=== PATIENT | male | born 1985 | race Caucasian/White ===

== ENCOUNTER → 2016-09-18 | Outpatient (CLI) | payer BC ==
--- NOTE | 2016-09-18 09:45 | MR ---
EXAMINATION TYPE: MR shoulder RT wo con DATE OF EXAM: 09/18/2016 8:56 AM COMPARISON: Right shoulder x-ray September 05, 2016. HISTORY: Rt Shoulder Pain per order. Pain since hockey injury 4 years ago per patient. TECHNIQUE: Multiplanar, multisequence imaging of the right shoulder is performed without contrast. FINDINGS: Rotator Cuff: There is focal tear involving the anterior fibers of the supraspinatus tendon seen best parasagittal image 21 measuring 10 mm in anterior posterior dimension by 7 mm in transverse dimensio n on paracoronal image 12. There is oblique full-thickness tear at this level seen best on parasagitt al image 20 from the outer bursal surface anteriorly to the posterior articular surface. Infraspinatus tendon is intact and felt within normal limits. Subscapularis tendon is intact. Rotator cuff muscle bulk is preserved. Acromioclavicular Joint: There is acromioclavicular joint separation with inferior margin of distal c lavicle 9 mm superiorly distracted from the inferior margin of the acromion on paracoronal image 15. Some overlap is present. Finding presumed chronic as no suspicious edema or soft tissue swelling is n oted. Findings correlate with x-ray. Distal acromion morphology is unremarkable. Glenohumeral Joint: There is small to moderate-sized glenohumeral joint effusion. No significant spur ring is seen. Labrum: On axial image 15 there is a blunted appearance of the expected level of the anterior superio r labrum suspected absent. Thickening of the adjacent middle glenohumeral ligament is noted. Findings are consistent with underlying Gilmer complex. Biceps Tendon: The long head of biceps is in normal location within bicipital groove. Bone marrow signal: Subchondral cystic change superior lateral humeral head posteriorly is present. Other: No additional significant abnormality is appreciated. IMPRESSION: 1. Acromioclavicular joint separation presumed chronic related to remote hockey injury. 2. Oblique full-thickness tear involving the supraspinatus tendon as detailed above. 3. Underlying [place] complex noted.
== END | disposition home or self-care (01) ==
LOC: RADMRIMAIN 08:10
PROVIDERS: ATTEND Orthopaedic Surgery
DX: M75.121 Complete rotator cuff tear or rupture of right shoulder, not specified as traumatic (principal)

== ENCOUNTER → 2018-06-25 | Outpatient (CLI) | payer BC ==
--- NOTE | 2018-06-26 07:28 | US ---
EXAMINATION TYPE: US kidneys/renal and bladder DATE OF EXAM: 06/25/2018 COMPARISON: NONE CLINICAL HISTORY: R31.9 Hematuria. microscopic hematuria, right sided pain EXAM MEASUREMENTS: Right Kidney: 10.0 x 4.7 x 5.5 cm Left Kidney: 9.7 x 4.0 x 4.8 cm Right Kidney: No hydronephrosis or masses seen Left Kidney: No hydronephrosis or masses seen Bladder: wnl Bilateral Jets seen: yes IMPRESSION: 1. Normal renal ultrasound
== END | disposition home or self-care (01) ==
LOC: RADUSWWP 16:03
PROVIDERS: ATTEND Family Medicine
DX: R31.9 Hematuria, unspecified (principal)
CPT/HCPCS: 76770

== ENCOUNTER → 2018-07-08 | Outpatient (CLI) | payer BC ==
--- NOTE | 2018-07-09 11:57 | CT ---
EXAMINATION TYPE: CT abdomen wo/w con DATE OF EXAM: 07/08/2018 COMPARISON: Renal ultrasound June 25, 2018. HISTORY: Right upper quadrant pain x 4 weeks. Acute cholecystitis per order. CT DLP: 2093 mGycm, Automated Exposure Control for Dose Reduction was Utilized. CONTRAST: CT scan of the abdomen is performed with oral and without and with IV Contrast, patient injected with 100 mL of Isovue M300. FINDINGS: LUNG BASES: There is suspected small degree of right-sided gynecomastia on axial image 1 partially im aged, correlate clinically. LIVER/GB: Gallbladder is normal in size. No CT dense intraluminal gallstones or surrounding inflammat ory change is present. PANCREAS: No significant abnormality is seen. SPLEEN: No significant abnormality is seen. ADRENALS: No significant abnormality is seen. KIDNEYS: Noncontrast images show no renal calculi bilaterally. Postcontrast images show symmetric cor tical medullary uptake and excretion without evidence of concerning solid or cystic renal mass or hyd ronephrosis seen bilaterally. BOWEL: The oral contrast only reaches level of terminal ileum making evaluation of: Suboptimal. There is no suspicious small or large bowel dilatation. Mild to moderate wall thickening in the right hand transverse colon is presumed product of poor distention, a colitis cannot be entirely excluded, orquidea elate clinically. Appendix is felt within normal limits extending inferiorly from base of cecum in th e right midabdomen lateral aspect. LYMPH NODES: No greater than 1cm abdominal lymph nodes are appreciated. OSSEOUS STRUCTURES: Transitional type L5 vertebra is felt present though only partially imaged. OTHER: No significant additional abnormality is seen. IMPRESSION: No CT evidence for acute cholecystitis. No significant acute finding is seen to account f or patient's clinical symptoms.
== END | disposition home or self-care (01) ==
LOC: RADCTMAIN 14:17
PROVIDERS: ATTEND Family Medicine
DX: R10.11 Right upper quadrant pain (principal)
CPT/HCPCS: 74170; Q9967